=== PATIENT | female | born 1980 | race Caucasian/White ===

== ENCOUNTER 2021-07-23 04:11 | Day surgery (SDC) | payer BC, SELFPAY ==
[2021-07-19 14:22] VITALS: BMI 34.2
--- NOTE | 2021-07-19 14:31 | PC.NURSE ---
Report to the Outpatient Waiting Room, entrance under the green pavilion located off [facility], at time __0930 on date ___07/23/21____. OR Time: . - You and your visitor will be asked a series of questions to screen for COVID 19 for your protection. - A mask is required within the hospital. Preoperative COVID Testing Requirements: NONE No COVID Test needed if: (proof is required; if not received patient will have Rapid Test prior to entry) - Patient has received COVID Vaccine at least 14 days prior to procedure date or - Patient has positive COVID test result within last 90 days of surgery date. COVID Test needed if above criteria is not met If not COVID vaccinated a COVID test must be conducted within 72 hours of surgery and patient is asked to isolate self from time of testing until procedure. You will go to the [facility] for your COVID testing. The [facility] is located at the corner of [address] [facility]. You will only be called if COVID results are positive and your surgeon may reschedule your elective surgery date. Patients may have clear liquids (water, carbonated beverages, clear teas, apple juice) until 3 hours prior to surgery (0830 AM) with a maximum of 20 ounces. - No food from midnight until time of surgery - Infants may have breast milk until 4 hours before surgery, infant formula 6 hours prior to surgery. - Children will be allowed to drink immediately following surgery. If applicable, please bring a bottle or sippy cup to assist with drinking. Juice, water, soda, and popsicles are readily available. For infants on formula, please bring formula the day of surgery. Pacifiers are allowed. Take the following medications with a SIP of water the morning of surgery: NONE Medications to discontinue per physician NONE Date to take last dose Please no make-up, nail montserratian, hairspray, perfume, deodorant, or body powder the day of surgery. No jewelry (including any body piercings) or valuables the day of surgery, leave them at home. Please take a shower or bath the night before, or the morning of, surgery with an antibacterial soap. Wear comfortable, loose fitting clothing. Children are encouraged to wear pajamas. - Jewelry must be removed prior to entering the operating room. Rings and piercings that are not removed may be cut off. - The hospital will not accept responsibility for valuables. - Please leave all valuables, including medications, at home the day of surgery. If you are going home after surgery, a licensed flatbed driver must drive you home. - NO public transportation without another adult. - We recommend that an adult stay with you for 24 hours following discharge. - We also recommend that you do not drive, make important decision, drink alcoholic beverages, or take any drugs that were not prescribed by your health care provider for at least 24 hours after your discharge time. For Pediatric surgeries, we recommend two adults accompany the child home (only one inside the building at this time). One visitor will be allowed to accompany the patient into the hospital. Patients visitor will be instructed to remain with patient at all times or leave the building. We will allow the visitor to come back to the postoperative area when patient is ready. Follow any additional instructions given to you from your surgeon. Telephone instructions given to PT____and asked if any additional questions and then verbalized understanding. Patient advised to call surgeon office or pre surgery nurse liaison [phone] if any additional questions.
--- NOTE | 2021-07-20 07:57 | PM.IMHP ---
H&P: HPI History of Present Illness Date/Time: 07/20/21 07:57 40-year-old 3 para 3 admitted for robotic total vaginal hysterectomy and bilateral salpingectomy secondary to pelvic pain and bleeding refractory to medical therapy. Risks of this procedure reviewed in full including but not exclusive of , aspiration pneumonia, bleeding, transfusion, perforation injury to bowel, bladder, ureters, or other internal organs with need for open laparotomy. She received the ACOG handout entitled hysterectomy as well as the de Ivan handout. She had all questions answered and asked to proceed Chief Complaint: Pelvic pain and bleeding Review of Systems Review of Systems: All systems reviewed & are unremarkable except as noted in HPI and below PMFSH Social History Social History Years smoked: 25 Smoking status: Current some day smoker Tobacco type: cigarettes Second hand tobacco smoke exposure: Yes Additional smoking assessment comments: STATES SMOKEDS 1PK/WEEK-2WEEKS/25YRS Alcohol intake: current Drinks per week: 6 Substance use: never Living arrangements: with family Spiritual care concerns: No Meds Home Medications and Allergies Home Medications Medication Instructions Recorded Confirmed Type omeprazole 40 mg QAM 07/19/21 07/19/21 History Allergies Allergy/AdvReac Type Severity Reaction Status Date / Time Sulfa (Sulfonamide Allergy Mild SWELLING, Verified 07/19/21 14:21 Antibiotics) SKIN IRRITATION Exam Const: General: no acute distress Eyes: General: appearance normal, both eyes and all related structures Neck: Neck: supple and no JVD Thyroid: thyroid normal Resp: Effort & Inspection: normal respiratory effort Auscultation: clear to auscultation bilaterally Cardio: Rate: regular rate Rhythm: regular rhythm GI: Inspection: non-distended GI Palp: Yes Soft to palpation, No Tenderness to palpation present (GI) and No Guarding due to palpation present (GI) Auscultation: normal bowel sounds : External Female Exam: normal external appearance Speculum Exam - Vagina: normal appearance of the vagina and vaginal bleeding Speculum Exam - Cervix: normal appearance of the cervix Bimanual exam- vagina & uterus: enlarged Bimanual Exam- Adnexa, other: normal adnexae Skin: General skin exam: no rashes or lesions noted Extrem: General: normal to inspection and no edema Psych: Mental Status: mental status grossly normal Affect: normal affect Assessment and Plan Additional Plan Impression: Enlarged uterus pelvic pain and bleeding refractory medical therapy Plan: Robotic total vaginal hysterectomy and bilateral salpingectomy
[2021-07-23] VITALS (10 sets, daily range): BP systolic 103–126; BP diastolic 61–75; PULSE 55–75; RESP 12–18; TEMP 36.2–37.1; O2SAT 98–100; BMI 35.4
--- NOTE | 2021-07-23 07:11 | WPDHPUPDATE1 ---
History and Physical Update Update Date/Time: 07/23/21 07:11 History and Physical has been reviewed, including an updated exam of the patient. There are NO changes in the patient's condition. Risks, benefits, and alternatives have been discussed and questions answered. Patient agrees to proceed with procedure.
[2021-07-23] MEDS: LACTATED RINGERS 1,000 ML 30 ML IV CONT ×2 (10:30→12:46)
[2021-07-23] MEDS: KETOROLAC 15 MG/ML VIAL (*BKC) IV PUSH (10:30)
[2021-07-23] MEDS: ACETAMINOPHEN 500 MG TABLET 1000 MG PO (10:30)
[2021-07-23 10:38] LABS: Basophils Absolute Auto 0.1 K/mm3 (0.0-0.1); Basophils Percent Auto 0.7 % (0.2-1.2); Eosinophils Absolute Auto 0.2 K/mm3 (0-0.3); Eosinophils Percent Auto 2.7 % (0-4.4); Hematocrit 41.1 % (37.0-47.0); Hemoglobin 13.7 g/dL (12.0-15.0); Immature Granulocyte Absolute 0.01 K/mm3 (0.00-0.031); Immature Granulocyte Percent A 0.1 % (0-0.5); Lymphocytes Absolute Auto 2.75 K/mm3 (0.9-3.2); Mean Corpuscular HGB Conc 33.3 g/dl (32-36); Mean Corpuscular Hemoglobin 30.4 pg (26-34); Mean Corpuscular Volume 91.1 fl (80-100); Mean Platelet Volume 10.6 fl (7.4-10.4); Monocytes Absolute Auto 0.7 K/mm3 (0.1-0.6); Monocytes Percent Auto 9.8 % (2.6-8.5); Neutrophils Absolute Auto 3.4 K/mm3 (1.3-6.7); Neutrophils Percent Auto 47.7 % (45.5-73.1); Platelet Count Result 311 k/mm3 (150-375); Red Blood Count 4.51 M/mm3 (4.2-5.4); Red Cell Distribution Width 13.2 % (11.5-14.5); White Blood Count 7.1 K/mm3 (4.5-10.0)
--- NOTE | 2021-07-23 10:43 | WPDANESEPPF ---
Anes - Initial Pre Proc Eval Procedure: Operation Date: 07/23/21 11:30 Proposed Procedures p Robotic Assisted Total Vaginal Hysterectomy with Bilateral Salpingectomy - Lazarus Quiñones MD Date/Time: 07/23/21 10:43 Surgeon: Lazarus Quiñones MD Pre Op Diagnosis: pelvic pain, fibroids, enlg uterus, irr bleeding Patient Data Age: 40 Gender: F Height: 1.73 m Weight: 102.27 kg Allergies Allergy/AdvReac Type Severity Reaction Status Date / Time Sulfa (Sulfonamide Allergy Mild SWELLING, Verified 07/19/21 14:21 Antibiotics) SKIN IRRITATION Home Medications Medication Instructions Recorded Confirmed Type omeprazole 40 mg QAM 07/19/21 07/19/21 History hydrocodone-acetaminophen 1 tablet PO Q4H PRN #30 tablet 07/23/21 Rx Laboratory Tests 07/23/21 10:19 WBC Pending RBC Pending Hgb Pending Hct Pending MCV Pending MCH Pending MCHC Pending RDW Pending Plt Count Pending MPV Pending Immature Gran % (Auto) Pending Neut % (Auto) Pending Lymph % (Auto) Pending [place] % (Auto) Pending Eos % (Auto) Pending Baso % (Auto) Pending Lymph # (Auto) Pending [place] # (Auto) Pending Eos # (Auto) Pending Baso # (Auto) Pending Abs Immat Gran (auto) Pending Absolute Neuts (auto) Pending Absolute Nucleated RBC Pending Nucleated RBC % Pending Patient hx anesthesia problems: none Family hx anesthesia problems: none Results Review: All pre-operative results and documents have been reviewed as part of the pre-operative evaluation. [facility] Past Medical History Medical History Overweight Smoker Surgical History Surgical History (Updated 07/23/21 @ 10:43 by Lazarus Briseno MD) History of tubal ligation Hx of tonsillectomy Social History Social History Years smoked: 25 Smoking status: Current some day smoker Tobacco type: cigarettes Second hand tobacco smoke exposure: Yes Additional smoking assessment comments: STATES SMOKEDS 1PK/WEEK-2WEEKS/25YRS Alcohol intake: current Drinks per week: 6 Substance use: never Living arrangements: with family Spiritual care concerns: No Anes - Eval Final PreProcedure Day of Procedure 07/23/21 10:43 Patient weight: obese Heart: regular rate and rhythm Lungs: clear to auscultation Airway: Mallampati scale class II Neurological: alert and oriented Last oral intake: >/= 8 hours ASA classification: II Emergent: no Anesthetic plan: proceed Anesthesia type and monitoring: general ETT and standard monitoring Results Review: All pre-operative results and documents have been reviewed as part of the pre-operative evaluation. Informed Consent: The patient's anesthetic plan and its attendant risks and benefits were discussed with the patient/family/POA. Questions were solicited and answers provided to the satisfaction of the patient/family/POA.
[2021-07-23] MEDS: ceFAZolin 2 GM/D5W 50 ML 2 GM/50 ML BAG IVPB (11:23)
--- NOTE | 2021-07-23 12:23 | W.PM.PROC2 ---
Procedure Note - Detailed Date of Procedure 07/23/21 Pre-op Diagnosis pelvic pain, fibroids, enlg uterus, irr bleeding Post-op Diagnosis Same Procedure Performed Robotic total vaginal hysterectomy and bilateral salpingectomy Surgeon Lazarus Quiñones MD Anesthesia General Findings Enlarged uterus normal-appearing ovaries and tubes although tubes were status post tubal ligation Description of Procedure The patient is prepped draped in the normal sterile fashion placed in the dorsal lithotomy position. Under excellent general trach anesthesia weighted speculum placed in posterior fornix vagina. Anterior lip of the cervix grasped with single-tooth tenaculum and the uterus sounded to 10cm. Serial dilatation with fragmented dilators performed followed passes the 8. MEERA and the 3. Cold cup. The [place] catheter was placed and bladder drained clear urine the weighted speculum and single-tooth removed. The gloves were changed A supraumbilical incision made the Veress needle passed in the abdomen. Abdomen filled with CO2 gas 15mmmmofmercury. The 8mm trocar advanced in the abdomen downside visualized with no injury seen. Patient placed in Trendelenburg and right left lateral quadrant incisions made. 8mm trocars advanced under direct visualization assuring no injury a right upper quadrant incision was then made. The 8mm trocar advanced under direct visualization assuring no injury. Robot was docked Attention was turned to the console. The left round ligament was grasped, burned, cut. Anteriorly a bladder flap was formed by sharply dissecting the peritoneum and reflecting the bladder caudally away from the cervix and uterus to the opposite round ligament which was clamped, burned, cut. Next the fallopian tube was noted to be bisected bilaterally on a each side. This was from the ovarian complex. The distal fimbriated end was cut removed and taken through the right lower quadrant incision. In like fashion this stub of the left fallopian tube was grasped cut left attached to the uterine origin. The fimbriated end was cut and removed passed through the right lower quadrant incision. Next the utero-ovarian ligament on the left was skeletonized to conserve the left ovary clamped, burned, cut and brought to level of the previously cut round ligament. The right utero-ovarian ligament was clamped, burned, cut and brought to the level of previously cut out right round ligament. This conserve the right ovary. The left cardinal broad ligaments were serially skeletonized hugging the cervix uterus clamping burning cutting and bringing this down to the uterine vessels. The uterine vessels were sent skeletonized and individually clamped cut and burned. In like fashion the cardinal broad ligaments on the right were serially skeletonized hugging the cervix and uterus these were clamped, burned, cut and brought down to level uterine vessels. The uterine vessels on the right were clamped, burned, cut. Excellent blanching was seen in the uterus and colpotomy incision was made the cervix uterus portions of tube removed through the vagina. Blood loss was [id number] at this point. The vagina was closed with continuous running 0V lock from lateral edge to lateral edge back to the midline. Irrigation undertaken to clear. All pedicles appeared hemostatic and the robot was undocked. The gas removed from the abdomen and the trocars removed. The incisions closed with 4-0 Monocryl and glue. The patient was awakened and went to recovery in satisfactory condition. All sponge, needle, instrument counts were correct. There were no immediate complications Estimated Blood Loss 25 Drains No Packing No Pathology Yes Complications No immediate complications Condition Stable Disposition PACU
[2021-07-23] MEDS: fentaNYL CITRATE INJ (*CRX) 100 MCG/2 ML VIAL 25 MCG IV PUSH ×2 (12:43→12:59)
--- NOTE | 2021-07-23 14:05 | PC.NURSE ---
This patient, Matilda Reeder, was received from PACU on 07/23/21 at 1405. Patient/family oriented to unit policies and routines
[2021-07-23] MEDS: HYDROcodone/acetaminophen (*CRX) 5-325 MG TABLET 1 TAB PO (14:50)
[2021-07-23] MEDS: DEXTROSE 5%/LACTATED RINGERS 1,000 ML 125 ML IV CONT (14:51)
[2021-07-23] MEDS: DOCUSATE SODIUM 100 MG CAPSULE PO (17:04)
[2021-07-23] MEDS: IBUPROFEN 600 MG TABLET PO ×2 (17:05→23:12)
[2021-07-23] MEDS: HYDROcodone/acetaminophen (*CRX) 10-325 MG TABLET 1 TAB PO ×2 (18:48→23:12)
[2021-07-24 04:50] VITALS: BP 122/61; PULSE 65; RESP 16; TEMP 36.6
[2021-07-24] MEDS: IBUPROFEN 600 MG TABLET PO (04:52)
[2021-07-24] MEDS: HYDROcodone/acetaminophen (*CRX) 10-325 MG TABLET 1 TAB PO (04:53)
[2021-07-24] MEDS: SIMETHICONE 80 MG TAB.CHEW PO (04:57)
[2021-07-24 05:26] LABS: Basophils Absolute Auto 0.1 K/mm3 (0.0-0.1); Basophils Percent Auto 0.5 % (0.2-1.2); Eosinophils Absolute Auto 0.1 K/mm3 (0-0.3); Eosinophils Percent Auto 0.3 % (0-4.4); Hematocrit 36.8 % (37.0-47.0); Hemoglobin 11.7 g/dL (12.0-15.0); Immature Granulocyte Absolute 0.08 K/mm3 (0.00-0.031); Immature Granulocyte Percent A 0.5 % (0-0.5); Lymphocytes Absolute Auto 2.81 K/mm3 (0.9-3.2); Lymphocytes Percent Auto 18.8 % (18.3-44.2); Mean Corpuscular HGB Conc 31.8 g/dl (32-36); Mean Corpuscular Hemoglobin 29.8 pg (26-34); Mean Corpuscular Volume 93.9 fl (80-100); Mean Platelet Volume 10.7 fl (7.4-10.4); Monocytes Absolute Auto 1.1 K/mm3 (0.1-0.6); Monocytes Percent Auto 7.3 % (2.6-8.5); Neutrophils Absolute Auto 10.9 K/mm3 (1.3-6.7); Neutrophils Percent Auto 72.6 % (45.5-73.1); Platelet Count Result 269 k/mm3 (150-375); Red Blood Count 3.92 M/mm3 (4.2-5.4); Red Cell Distribution Width 13.3 % (11.5-14.5)
--- NOTE | 2021-07-24 06:25 | PM.DS ---
DS: Admitting Diagnosis Discharge Date 07/24/2021 Admitting Diagnosis pelvic pain enlarged uterus and bleeding refractory medical therapy DS: Summary Hospital Course Hospital Course: patient was admitted on 07/23/2021 for robotic total vaginal hysterectomy bilateral salpingectomy. The procedure was unremarkable. She remained afebrile. She was up, voiding without difficulty, ambulating, eating regular diet, and generally without complaints. Time Spent with Patient Time attestation: Total time spent providing and/or coordinating discharge services: Exam Const: General: no acute distress Eyes: General: appearance normal, both eyes and all related structures Neck: Neck: supple and no JVD Thyroid: thyroid normal Resp: Effort & Inspection: normal respiratory effort Auscultation: clear to auscultation bilaterally Cardio: Rate: regular rate Rhythm: regular rhythm GI: Inspection: non-distended GI Palp: Yes Soft to palpation, No Tenderness to palpation present (GI) and No Guarding due to palpation present (GI) Auscultation: normal bowel sounds : General: Yes bladder normal to palpation External Female Exam: normal external appearance Speculum Exam - Vagina: normal vaginal discharge and No vaginal bleeding Speculum Exam - Cervix: nontender Bimanual exam- vagina & uterus: bladder normal to palpation and No Cervical tenderness present OB/external & speculum: No vaginal bleeding Skin: General skin exam: no rashes or lesions noted Extrem: General: normal to inspection and no edema Psych: Mental Status: mental status grossly normal Affect: normal affect DS: Data Data Completed and Pending Pending studies at discharge: Pending at discharge 07/23/21 11:57 Surgical [PTH] Routine Labs on day of discharge: Labs from last 24 hours 07/24/21 07/23/21 07/23/21 04:53 10:19 10:19 WBC 15.0 H 7.1 RBC 3.92 L 4.51 Hgb 11.7 L 13.7 Hct 36.8 L 41.1 MCV 93.9 91.1 MCH 29.8 30.4 MCHC 31.8 L 33.3 RDW 13.3 13.2 Plt Count 269 311 MPV 10.7 H 10.6 H Immature Gran % (Auto) 0.5 0.1 Neut % (Auto) 72.6 47.7 Lymph % (Auto) 18.8 39.0 [place] % (Auto) 7.3 9.8 H Eos % (Auto) 0.3 2.7 Baso % (Auto) 0.5 0.7 Lymph # (Auto) 2.81 2.75 [place] # (Auto) 1.1 H 0.7 H Eos # (Auto) 0.1 0.2 Baso # (Auto) 0.1 0.1 Abs Immat Gran (auto) 0.08 H 0.01 Absolute Neuts (auto) 10.9 H 3.4 Absolute Nucleated RBC 0.0 0.0 Nucleated RBC % 0.0 0.0 Blood Type A Positive Antibody Screen Negative Discharge Plan Discharge Patient Disposition: Home, Self-Care Stand Alone Forms: General Discharge Instructions Follow-up/Referrals: Lazarus Sainz MD [Physician] - Discharge Medications: New hydrocodone-acetaminophen 5-325 mg tablet 1 tablet PO Q4H PRN (Reason: pain) Qty: 30 RF: 0 No Action omeprazole 40 mg capsule,delayed release(DR/EC) 40 mg QAM RF: 0
--- NOTE | 2021-07-24 06:27 | PM.GYNPNOP ---
LABORER WHARF - A/P Postoperative Procedures: Procedures Operation Date: 07/23/21 11:30 Actual Procedure Side Surgeon p Robotic Assisted Total Vaginal Hysterectomy with Bilateral Salpingectomy Not Applicable Lazarus Quiñones MD Postoperative day: 1 Postoperative status: doing well Postoperative plan: routine post-op care, advance diet and discharge Time Spent With Patient Time: Total time spent is greater than 50% in coordination of care (as documented) at patient's floor/unit and/or counseling patient: Time with patient: less than 15 minutes [facility]OR[facility] WHARF- PN:Subj Post-Op Subjective Date/time seen: 07/24/21 06:27 Subjective: patient reports feeling better, patient desires discharge and pain is well controlled Review of Systems Review of Systems: All systems reviewed & are unremarkable except as noted in HPI and below Exam Const: General: no acute distress Eyes: General: appearance normal, both eyes and all related structures Neck: Neck: supple and no JVD Thyroid: thyroid normal Resp: Effort & Inspection: normal respiratory effort Auscultation: clear to auscultation bilaterally Cardio: Rate: regular rate Rhythm: regular rhythm GI: Inspection: non-distended GI Palp: Yes Soft to palpation, No Tenderness to palpation present (GI) and No Guarding due to palpation present (GI) Auscultation: normal bowel sounds Skin: General skin exam: no rashes or lesions noted Extrem: General: normal to inspection and no edema Psych: Mental Status: mental status grossly normal Affect: normal affect [facility] WHARF - PN: Obj Data Vital Signs Vital Signs: Vital Signs - 24 hr 07/23/21 11:37 07/23/21 12:36 07/23/21 12:50 Temperature 97.4 F L 97.2 F L Pulse Rate 63 55 L 57 L Respiratory Rate 14 12 12 Blood Pressure 114/69 123/61 115/65 Pulse Oximetry 100 100 100 07/23/21 13:05 07/23/21 13:25 07/23/21 13:40 Temperature 97.2 F L Pulse Rate 60 56 L 60 Respiratory Rate 15 15 15 Blood Pressure 110/75 104/69 103/67 Pulse Oximetry 100 98 98 07/23/21 14:15 07/23/21 16:15 07/23/21 21:00 Temperature 97.9 F 98.7 F 98.2 F Pulse Rate 69 64 75 Respiratory Rate 16 14 18 Blood Pressure 126/73 118/71 116/66 Pulse Oximetry 100 100 07/23/21 23:19 07/24/21 04:50 Temperature 98.4 F 98 F Pulse Rate 67 65 Respiratory Rate 18 16 Blood Pressure 116/64 122/61 Pulse Oximetry Intake/Output Intake/Output: Intake & Output 07/21/21 07/22/21 07/23/21 07/24/21 23:59 23:59 23:59 23:59 Intake Total 3250 Output Total 2790 Balance 460 Meds/Results Medications: Active Medications Generic Name Dose Route Start Last Admin Trade Name Freq PRN Reason Stop Dose Admin Hydrocodone Bitart/Acetaminophen 1 tab 07/23/21 13:59 07/23/21 14:50 Hydrocodone/Acetaminophen (*Crx) 5-325 Mg Tablet PO 1 tab Q3H PRN Administration Pain Rated 5 or Less Hydrocodone Bitart/Acetaminophen 1 tab 07/23/21 13:59 07/24/21 04:53 Hydrocodone/Acetaminophen (*Crx) 10-325 Mg Tablet PO 1 tab Q3H PRN Administration Pain Rated 6 or Greater Docusate Sodium 100 mg 07/23/21 17:00 07/23/21 17:04 Docusate Sodium 100 Mg Capsule PO 100 mg BID DIDI Administration Enoxaparin Sodium 40 mg 07/24/21 09:00 Enoxaparin 40 Mg/0.4 Ml Syringe SUB-Q DAILY [facility] Ibuprofen 600 mg 07/23/21 13:59 07/24/21 04:52 Ibuprofen 600 Mg Tablet PO 600 mg Q6H PRN Administration Cramping Ketorolac Tromethamine 30 mg 07/23/21 13:59 Ketorolac 30 Mg/Ml Vial (*Bkc) IV PUSH 07/28/21 13:58 Q6H PRN Pain Rated 4-6 Naloxone HCl 0.1 mg 07/23/21 13:59 Naloxone Hcl 0.4 Mg/Ml Vial IV PUSH Q2M PRN Respiratory rate less than 10 Ondansetron HCl 4 mg 07/23/21 13:59 Ondansetron Inj 4 Mg/2 Ml Vial IV PUSH Q6H PRN Nausea And Vomiting Simethicone 80 mg 07/23/21 13:59 07/24/21 04:57 Simethicone 80 Mg Tab.Chew PO 80 mg Q2H PRN Administration Gas Labs CBC & Chem 7:
--- NOTE | 2021-07-24 07:32 | WPDANESPN ---
Anes - Prog Note Post-Op Date/Time: 07/24/21 07:32 Cardiovascular status: normal Respiratory status: normal Airway patency: baseline Mental status: baseline Post-Op hydration status: normal Vital Signs: Last Vital Signs Temp 36.6 C 07/24/21 04:50 Pulse 65 07/24/21 04:50 Resp 16 07/24/21 04:50 BP 122/61 07/24/21 04:50 Pulse Ox 100 07/23/21 16:15 Pain Score (VAS): 3 I/O: Intake & Output 07/23/21 07/23/21 07/24/21 15:59 23:59 07:59 Intake Total 450 2800 Output Total 40 2750 Balance 410 50 Laboratory Tests 07/24/21 04:53 07/23/21 07/23/21 07/24/21 10:19 10:19 04:53 WBC 7.1 15.0 H RBC 4.51 3.92 L Hgb 13.7 11.7 L Hct 41.1 36.8 L MCV 91.1 93.9 MCH 30.4 29.8 MCHC 33.3 31.8 L RDW 13.2 13.3 Plt Count 311 269 MPV 10.6 H 10.7 H Immature Gran % (Auto) 0.1 0.5 Neut % (Auto) 47.7 72.6 Lymph % (Auto) 39.0 18.8 [place] % (Auto) 9.8 H 7.3 Eos % (Auto) 2.7 0.3 Baso % (Auto) 0.7 0.5 Lymph # (Auto) 2.75 2.81 [place] # (Auto) 0.7 H 1.1 H Eos # (Auto) 0.2 0.1 Baso # (Auto) 0.1 0.1 Abs Immat Gran (auto) 0.01 0.08 H Absolute Neuts (auto) 3.4 10.9 H Absolute Nucleated RBC 0.0 0.0 Nucleated RBC % 0.0 0.0 Blood Type A Positive Antibody Screen Negative Post-procedural complaints: none Patient Feedback: Patient satisfied with anesthetic care.
[2021-07-24 08:00] VITALS: BP 106/70; PULSE 70; RESP 16; TEMP 36.9; O2SAT 98
[2021-07-24] MEDS: ENOXAPARIN 40 MG/0.4 ML SYRINGE SUB-Q (08:13)
[2021-07-24] MEDS: DOCUSATE SODIUM 100 MG CAPSULE PO (08:13)
== END 2021-07-24 09:35 | disposition home or self-care (01) ==
LOC: ANHSURGERY 09:33 → ANHOB2 14:32
PROVIDERS: Visit Provider Obstetrics & Gynecology
PROC: (CPT 58552; principal; 2021-07-23 11:30)
DX: R10.2 Pelvic and perineal pain (principal); N93.9 Abnormal uterine and vaginal bleeding, unspecified; N80.0 Endometriosis of uterus; D25.0 Submucous leiomyoma of uterus; N70.11 Chronic salpingitis; F17.210 Nicotine dependence, cigarettes, uncomplicated; E66.9 Obesity, unspecified; Z68.35 Body mass index [BMI] 35.0-35.9, adult
CPT/HCPCS: 58552; S2900; 36415; 85025; 86850; 86900; 86901; 88307; 99199; A9270; J0330; J0690; J1100; J1650; J1885; J1940; J2250; J2270; J2405; J2704; J3010; J7030; J7120; J7121